=== PATIENT | male | born 1940 ===

== ENCOUNTER 2019-04-01 15:12 | Emergency (ER) | payer OTHER ==
[~2019-04-01] VITALS: Ht 167.6 cm; Wt 64.9 kg
[2019-04-01] MEDS ORDERED: COZAAR25 MG (15:20)
[2019-04-01] MEDS ORDERED: KOMBIGLYZE XR1 EAC2 (15:21)
[2019-04-01] MEDS ORDERED: GLIPIZIDE ER2.5 MG (15:21)
[2019-04-01] MEDS ORDERED: CRESTOR20 MG (15:21)
[2019-04-01] MEDS ORDERED: NORVASC2.5 MG (15:21)
[2019-04-01] MEDS ORDERED: LANTUS SOL100 UNIT/1 (15:22)
[2019-04-01] MEDS ORDERED: CASODEX50 MG (15:22)
[2019-04-01] MEDS ORDERED: LUPRON DEPOT22.5 MG (15:23)
[2019-04-01] MEDS ORDERED: NEURONTIN600 MG (15:34)
== END 2019-04-01 16:10 | disposition home or self-care (01) ==
LOC: ER 15:12
DX: T83.091A Other mechanical complication of indwelling urethral catheter, initial encounter (principal)

== ENCOUNTER 2019-04-02 20:23 | Emergency (ER) | payer OTHER ==
[~2019-04-02] VITALS: Ht 167.6 cm; Wt 65.8 kg
[~2019-04-02 20:23] MED LIST: CASODEX50 MG; COZAAR25 MG; CRESTOR20 MG; GLIPIZIDE ER2.5 MG; KOMBIGLYZE XR1 EAC2; LANTUS SOL100 UNIT/1; LUPRON DEPOT22.5 MG; NEURONTIN600 MG; NORVASC2.5 MG
== END 2019-04-02 23:54 | disposition home or self-care (01) ==
LOC: ER 20:23
DX: T83.83XA Hemorrhage due to genitourinary prosthetic devices, implants and grafts, initial encounter (principal)